=== PATIENT | female | born 1930 | race Caucasian/White ===

== ENCOUNTER 2018-03-02 22:47 | Emergency (ER) | payer MEDICARE, OTHER ==
[2018-03-03] MEDS: HYDROCODONE/APAP (5/325) TAB PO (00:58)
[2018-03-03] MEDS: ONDANSETRON (ODT) 4 MG TAB ODT (03:05)
[2018-03-03] MEDS: HYDROmorphONE 0.5 MG/0.5 ML SYG IM (03:05)
== END 2018-03-03 03:45 | disposition home or self-care (01) ==
LOC: E/R 22:47
DX: S52.592A Other fractures of lower end of left radius, initial encounter for closed fracture (principal); W07.XXXA Fall from chair, initial encounter; Y92.9 Unspecified place or not applicable; Z79.82 Long term (current) use of aspirin
CPT/HCPCS: 29125; 73110-LT; 96372; 99284-25